=== PATIENT | female | born 1980 | race Caucasian/White ===

== ENCOUNTER 2016-08-28 22:58 | Emergency (ER) | payer SELFPAY ==
[~2016-08-28] VITALS: Ht 177.8 cm; Wt 110.8 kg
[~2016-08-28 22:58] MED LIST: AMOXICILLIN500 MG PO; BACTRIM DS1 TAB PO; CELEXA10 MG PO; CELEXA20 MG PO; CIPROFLOXACN500 MG PO; FLEXERIL PO; LORTAB 7.57.5 MG PO; OMEPRAZOLE20 MG PO; PREVACID30 M3 PO; TYLENOL # 31 TA1 PO; ULTRAM50 M1 PO; ZOFRAN ODT4 MG PO
[2016-08-29 00:04] LABS: URINE BILIRUBIN - DIPSTICK NEGATIVE (NEGATIVE); URINE BLOOD DIPSTICK NEGATIVE (NEGATIVE); URINE CLARITY CLEAR; URINE COLOR YELLOW; URINE GLUCOSE - DIPSTICK NEGATIVE (NEGATIVE); URINE KETONE TRACE mg/dL (NEGATIVE); URINE LEUK ESTERASE TRACE (NEGATIVE); URINE NITRITE - DIPSTICK NEGATIVE (Negative); URINE PROTEIN - DIPSTICK TRACE mg/dL (NEG-TRACE)
[2016-08-29 00:20] LABS: HEMATOCRIT 44.8 % (37.0-47.0); HEMOGLOBIN 15.6 g/dl (12.0-16.0); IMMATURE GRANULOCYTES 0.2 % (0.0-1.0); MEAN CELL VOLUME 85.5 fL CALC (80.0-100.0); MEAN CORPUSCULAR HGB 29.8 pG CALC (26.0-32.0); MEAN CORPUSCULAR HGB CONC 34.8 g/L CALC (32.0-36.0); NEUT# 3.24 thou/uL (2.00-7.15); RED BLOOD COUNT 5.24 mill/uL (4.20-5.60); RED CELL DISTRI WIDTH 12.9 % (11.5-15.5)
[2016-08-29 00:23] LABS: ALBUMIN 4.7 g/dL (3.2-5.0); ALKALINE PHOSPHATASE 67 u/l (38-126); AMYLASE 37 u/l (30-110); ANION GAP 15 (6-22 (CALC)); BILIRUBIN, TOTAL 0.8 mg/dL (0.0-1.4); BUN 9 mg/dL (7-17); BUN/CREATININE RATIO 10 (12-20 (CALC)); CALCIUM 9.6 mg/dL (8.4-10.2); CARBON DIOXIDE 27 mmol/l (22-30); CHLORIDE 104 mmol/l (95-108); CREATININE 0.8 mg/dL (0.5-1.0); GFR > 60 ML/MIN (>=60 (CALC)); GFR FOR AFR.AMER. > 60 ML/MIN (>=60 (CALC)); GLUCOSE 88 mg/dL (65-105); LIPASE 180 u/l (23-300); POTASSIUM 3.7 mmol/l (3.5-5.1); SGOT/AST 22 u/l (14-36); SGPT/ALT 33 u/l (9-52); SODIUM 142 mmol/l (137-146); TOTAL PROTEIN 7.3 g/dL (6.3-8.2)
[2016-08-29] MEDS ORDERED: PROTONIX40 MG PO (01:32)
[2016-08-29 02:00] VITALS: BP 106/58
== END 2016-08-29 02:00 | disposition home or self-care (01) | DRG 392 ==
LOC: ED 22:58
PROVIDERS: Emergency Medicine
DX: R10.13 Epigastric pain (principal); F32.9 Major depressive disorder, single episode, unspecified; K21.9 Gastro-esophageal reflux disease without esophagitis; F17.210 Nicotine dependence, cigarettes, uncomplicated; K44.9 Diaphragmatic hernia without obstruction or gangrene; K57.30 Diverticulosis of large intestine without perforation or abscess without bleeding

== ENCOUNTER 2016-09-22 10:08 | Emergency (ER) | payer OTHER ==
[~2016-09-22] VITALS: Ht 177.8 cm; Wt 120.0 kg
[~2016-09-22 10:08] MED LIST changes: +PROTONIX40 MG PO
[2016-09-22] MEDS ORDERED: PROTONIX40 M2 PO (10:18)
[2016-09-22 10:36] LABS: HEMATOCRIT 47.7 % (37.0-47.0); HEMOGLOBIN 16.8 g/dl (12.0-16.0); IMMATURE GRANULOCYTES 0.3 % (0.0-1.0); MEAN CELL VOLUME 84.3 fL CALC (80.0-100.0); MEAN CORPUSCULAR HGB 29.7 pG CALC (26.0-32.0); MEAN CORPUSCULAR HGB CONC 35.2 g/L CALC (32.0-36.0); NEUT# 4.43 thou/uL (2.00-7.15); RED BLOOD COUNT 5.66 mill/uL (4.20-5.60); RED CELL DISTRI WIDTH 12.7 % (11.5-15.5)
[2016-09-22 11:04] LABS: ALBUMIN 4.8 g/dL (3.2-5.0); ALKALINE PHOSPHATASE 72 u/l (38-126); ANION GAP 15 (6-22 (CALC)); BILIRUBIN, TOTAL 1.4 mg/dL (0.0-1.4); BUN 9 mg/dL (7-17); BUN/CREATININE RATIO 12 (12-20 (CALC)); CALCIUM 9.1 mg/dL (8.4-10.2); CARBON DIOXIDE 23 mmol/l (22-30); CHLORIDE 107 mmol/l (95-108); CREATININE 0.7 mg/dL (0.5-1.0); GFR > 60 ML/MIN (>=60 (CALC)); GFR FOR AFR.AMER. > 60 ML/MIN (>=60 (CALC)); GLUCOSE 101 mg/dL (65-105); SGOT/AST 44 u/l (14-36); SGPT/ALT 28 u/l (9-52); SODIUM 140 mmol/l (137-146); TOTAL PROTEIN 7.7 g/dL (6.3-8.2)
[2016-09-22 11:16] LABS: MYOGLOBIN 24 ng/mL (0 - 62)
[2016-09-22] MEDS ORDERED: MOTRIN800 MG PO (12:00)
[2016-09-22] MEDS ORDERED: TRAMADOL HYDROC50 MG PO (12:00)
[2016-09-22 12:11] VITALS: BP 121/75
== END 2016-09-22 12:18 | disposition home or self-care (01) | DRG 313 ==
LOC: ED 10:08
PROVIDERS: Emergency Medicine
DX: R07.89 Other chest pain (principal); F17.210 Nicotine dependence, cigarettes, uncomplicated

== ENCOUNTER 2016-11-16 16:07 | Emergency (ER) | payer OTHER ==
[~2016-11-16] VITALS: Ht 177.8 cm; Wt 100.0 kg
[~2016-11-16 16:07] MED LIST changes: +MOTRIN800 MG PO; +PROTONIX40 M2 PO; +TRAMADOL HYDROC50 MG PO
[2016-11-16] MEDS ORDERED: TRAMADOL HYDROC50 MG PO (17:12)
[2016-11-16 17:36] VITALS: BP 131/67
== END 2016-11-16 17:36 | disposition home or self-care (01) | DRG 563 ==
LOC: ED 16:07
DX: S82.001A Unspecified fracture of right patella, initial encounter for closed fracture (principal); F32.9 Major depressive disorder, single episode, unspecified; K21.9 Gastro-esophageal reflux disease without esophagitis; W01.0XXA Fall on same level from slipping, tripping and stumbling without subsequent striking against object, initial encounter; Y93.E9 Activity, other interior property and clothing maintenance; Y92.009 Unspecified place in unspecified non-institutional (private) residence as the place of occurrence of the external cause
CPT/HCPCS: L1830

== ENCOUNTER 2017-06-27 12:23 | Emergency (ER) | payer SELFPAY ==
[~2017-06-27] VITALS: Ht 177.8 cm; Wt 93.0 kg
[2017-06-27] MEDS ORDERED: PRE-NATAL PO (13:04)
[2017-06-27 13:38] LABS: URINE BILIRUBIN - DIPSTICK NEGATIVE (NEGATIVE); URINE BLOOD DIPSTICK NEGATIVE (NEGATIVE); URINE COLOR YELLOW; URINE GLUCOSE - DIPSTICK NEGATIVE (NEGATIVE); URINE KETONE NEGATIVE (NEGATIVE); URINE NITRITE - DIPSTICK NEGATIVE (Negative); URINE PH 5.5 (4.5-8.0); URINE PROTEIN - DIPSTICK TRACE mg/dL (NEG-TRACE); URINE SPECIFIC GRAVITY >=1.030; URINE UROBILINOGEN - DIPSTICK 0.2 E.U./dL (0.2)
[2017-06-27 13:39] LABS: URINE CLARITY CLOUDY; URINE LEUK ESTERASE MODERATE (NEGATIVE)
[2017-06-27 13:41] LABS: URINE BACTERIA MODERATE hpf; URINE CASTS FEW lpf (NONE-RARE); URINE EPITHELIAL CELLS MANY EPI/hpf (0-FEW)
[2017-06-27] MEDS ORDERED: BACTRIM DS1 TAB PO (14:33)
[2017-06-27 14:41] VITALS: BP 105/84
== END 2017-06-27 14:41 | disposition home or self-care (01) | DRG 781 ==
LOC: ED 12:23
PROVIDERS: Emergency Medicine
DX: O23.42 Unspecified infection of urinary tract in pregnancy, second trimester (principal); F17.210 Nicotine dependence, cigarettes, uncomplicated; O99.332 Smoking (tobacco) complicating pregnancy, second trimester; Z3A.18 18 weeks gestation of pregnancy

== ENCOUNTER 2018-03-26 12:31 | Emergency (ER) | payer SELFPAY ==
[~2018-03-26] VITALS: Ht 177.8 cm; Wt 98.0 kg
[~2018-03-26 12:31] MED LIST changes: +PRE-NATAL PO
[2018-03-26] MEDS ORDERED: ZOFRAN4 MG/TAB PO (14:15)
[2018-03-26 14:36] VITALS: BP 117/70
== END 2018-03-26 14:36 | disposition home or self-care (01) | DRG 103 ==
LOC: ED 12:31
DX: R51 Headache (principal); F17.210 Nicotine dependence, cigarettes, uncomplicated
CPT/HCPCS: J0131

== ENCOUNTER 2018-10-17 09:33 | Emergency (ER) | payer SELFPAY ==
[~2018-10-17] VITALS: Ht 177.8 cm; Wt 103.0 kg
[~2018-10-17 09:33] MED LIST changes: +ZOFRAN4 MG/TAB PO
[2018-10-17 10:27] LABS: HEMATOCRIT 42.2 % (37.0-47.0); IMMATURE GRANULOCYTES 0.3 % (0.0-5.0); MEAN CELL VOLUME 85.9 fL CALC (80.0-100.0); MEAN CORPUSCULAR HGB 29.3 pG CALC (26.0-32.0); MEAN CORPUSCULAR HGB CONC 34.1 g/L CALC (32.0-36.0); NEUT# 7.02 thou/uL (2.00-7.15); RED BLOOD COUNT 4.91 mill/uL (4.20-5.60); RED CELL DISTRI WIDTH 12.1 % (11.5-15.5)
[2018-10-17 10:33] LABS: HEMOGLOBIN 14.4 g/dl (12.0-16.0)
[2018-10-17 10:34] LABS: URINE BILIRUBIN - DIPSTICK NEGATIVE (NEGATIVE); URINE BLOOD DIPSTICK NEGATIVE (NEGATIVE); URINE COLOR YELLOW; URINE GLUCOSE - DIPSTICK NEGATIVE (NEGATIVE); URINE KETONE NEGATIVE (NEGATIVE); URINE LEUK ESTERASE TRACE (NEGATIVE); URINE NITRITE - DIPSTICK NEGATIVE (Negative); URINE PROTEIN - DIPSTICK NEGATIVE (NEG-TRACE); URINE SPECIFIC GRAVITY 1.025; URINE UROBILINOGEN - DIPSTICK 0.2 E.U./dL (0.2)
[2018-10-17 10:48] LABS: ALBUMIN 3.8 g/dL (3.2-5.0); ALKALINE PHOSPHATASE 71 u/l (38-126); ANION GAP 10 (6-22 (CALC)); BILIRUBIN, TOTAL 0.6 mg/dL (0.0-1.4); BUN 13 mg/dL (7-17); BUN/CREATININE RATIO 15 (12-20 (CALC)); CARBON DIOXIDE 29 mmol/l (22-30); CHLORIDE 104 mmol/l (95-108); CREATININE 0.9 mg/dL (0.5-1.0); GFR > 60 ML/MIN (>=60 (CALC)); GFR FOR AFR.AMER. > 60 ML/MIN (>=60 (CALC)); LIPASE 88 u/l (23-300); POTASSIUM 4.1 mmol/l (3.5-5.1); SGOT/AST 23 u/l (14-36); SODIUM 139 mmol/l (137-146); TOTAL PROTEIN 6.3 g/dL (6.3-8.2)
[2018-10-17] MEDS ORDERED: ONDANSETRON4 MG PO (11:49)
[2018-10-17 11:55] VITALS: BP 120/80
== END 2018-10-17 12:02 | disposition home or self-care (01) | DRG 392 ==
LOC: ED 09:33
PROVIDERS: Family Medicine
DX: R10.31 Right lower quadrant pain (principal); R11.2 Nausea with vomiting, unspecified; F17.210 Nicotine dependence, cigarettes, uncomplicated
CPT/HCPCS: Q9967

== ENCOUNTER 2018-12-29 12:20 | Emergency (ER) | payer SELFPAY ==
[~2018-12-29] VITALS: Ht 177.8 cm; Wt 100.0 kg
[~2018-12-29 12:20] MED LIST changes: +ONDANSETRON4 MG PO
[2018-12-29] MEDS ORDERED: FLEXERIL5 MG PO (13:01)
[2018-12-29] MEDS ORDERED: NAPROXEN375 MG PO (13:01)
[2018-12-29] MEDS ORDERED: MEDDOSEPAK PO (13:01)
[2018-12-29 13:15] VITALS: BP 129/79
== END 2018-12-29 13:15 | disposition home or self-care (01) | DRG 563 ==
LOC: ED 12:20
DX: S56.912A Strain of unspecified muscles, fascia and tendons at forearm level, left arm, initial encounter (principal); M77.9 Enthesopathy, unspecified; F17.200 Nicotine dependence, unspecified, uncomplicated; X58.XXXA Exposure to other specified factors, initial encounter

== ENCOUNTER 2019-02-25 15:46 | Emergency (ER) | payer SELFPAY ==
[~2019-02-25] VITALS: Ht 177.8 cm; Wt 98.0 kg
[~2019-02-25 15:46] MED LIST changes: +FLEXERIL5 MG PO; +MEDDOSEPAK PO; +NAPROXEN375 MG PO
[2019-02-25] MEDS ORDERED: ORPHENADRINE100 MG PO (20:11)
[2019-02-25] MEDS ORDERED: MOTRIN400 MG/TAB PO (20:11)
[2019-02-25 20:19] VITALS: BP 121/75
== END 2019-02-25 20:32 | disposition home or self-care (01) | DRG 556 ==
LOC: ED 15:46
DX: M25.511 Pain in right shoulder (principal); F17.210 Nicotine dependence, cigarettes, uncomplicated

== ENCOUNTER 2020-03-02 07:05 | Emergency (ER) | payer SELFPAY ==
[~2020-03-02] VITALS: Ht 177.8 cm; Wt 98.0 kg
[~2020-03-02 07:05] MED LIST changes: +MOTRIN400 MG/TAB PO; +ORPHENADRINE100 MG PO
[2020-03-02] MEDS ORDERED: NAPROXEN500 MG PO (09:55)
[2020-03-02 10:04] VITALS: BP 136/77
== END 2020-03-02 10:04 | disposition home or self-care (01) | DRG 563 ==
LOC: ED 07:05
DX: S93.601A Unspecified sprain of right foot, initial encounter (principal); F17.200 Nicotine dependence, unspecified, uncomplicated; X50.0XXA Overexertion from strenuous movement or load, initial encounter

== ENCOUNTER 2020-10-30 18:53 | Emergency (ER) | payer SELFPAY ==
[~2020-10-30 18:53] MED LIST changes: +NAPROXEN500 MG PO
[2020-10-30 19:57] LABS: HEMATOCRIT 43.1 % (37.0-47.0); HEMOGLOBIN 14.1 g/dl (12.0-16.0); IMMATURE GRANULOCYTES 0.1 % (0.0-5.0); MEAN CELL VOLUME 88.5 fL CALC (80.0-100.0); MEAN CORPUSCULAR HGB CONC 32.7 g/dL CAL (32.0-36.0); NEUT# 5.23 thou/uL (2.00-7.15); RED BLOOD COUNT 4.87 mill/uL (4.20-5.60); RED CELL DISTRI WIDTH 12.8 % (11.5-15.5)
[2020-10-30 20:16] LABS: ALKALINE PHOSPHATASE 72 u/l (38-126); ANION GAP 12 (6-22 (CALC)); BUN 8 mg/dL (7-17); BUN/CREATININE RATIO 13 (12-20 (CALC)); CARBON DIOXIDE 27 mmol/l (22-30); CHLORIDE 102 mmol/l (95-108); CREATININE 0.7 mg/dL (0.5-1.0); GFR > 60 ML/MIN (>=60 (CALC)); GFR FOR AFR.AMER. > 60 ML/MIN (>=60 (CALC)); POTASSIUM 3.9 mmol/l (3.5-5.1); SGOT/AST 21 u/l (14-36); SODIUM 136 mmol/l (137-146); TOTAL PROTEIN 6.5 g/dL (6.3-8.2)
[2020-10-30 20:24] LABS: BILIRUBIN, TOTAL 0.3 mg/dL (0.0-1.4)
[2020-10-30] MEDS ORDERED: PERCOCET 5/325M1 TAB PO (22:18)
[2020-10-30] MEDS ORDERED: IBUPROFEN600 MG PO (22:18)
[2020-10-30 22:32] VITALS: BP 138/70
== END 2020-10-30 22:32 | disposition home or self-care (01) | DRG 556 ==
LOC: ED 18:53
PROVIDERS: Emergency Medicine
DX: M79.674 Pain in right toe(s) (principal); F17.210 Nicotine dependence, cigarettes, uncomplicated

== ENCOUNTER 2020-12-15 15:01 | Emergency (ER) | payer OTHER ==
[~2020-12-15] VITALS: Ht 177.8 cm; Wt 100.0 kg
[~2020-12-15 15:01] MED LIST changes: +IBUPROFEN600 MG PO; +PERCOCET 5/325M1 TAB PO
[2020-12-15 15:56] LABS: HEMATOCRIT 45.9 % (37.0-47.0); HEMOGLOBIN 15.1 g/dl (12.0-16.0); MEAN CELL VOLUME 86.9 fL CALC (80.0-100.0); MEAN CORPUSCULAR HGB 28.6 pG CALC (26.0-32.0); MEAN CORPUSCULAR HGB CONC 32.9 g/dL CAL (32.0-36.0); NEUT# 4.27 thou/uL (2.00-7.15); RED BLOOD COUNT 5.28 mill/uL (4.20-5.60); RED CELL DISTRI WIDTH 12.9 % (11.5-15.5)
[2020-12-15 16:21] LABS: ANION GAP 8 (6-22 (CALC)); BUN 8 mg/dL (7-17); BUN/CREATININE RATIO 11 (12-20 (CALC)); CARBON DIOXIDE 27 mmol/l (22-30); CHLORIDE 105 mmol/l (95-108); CREATININE 0.8 mg/dL (0.5-1.0); GFR > 60 ML/MIN (>=60 (CALC)); GFR FOR AFR.AMER. > 60 ML/MIN (>=60 (CALC)); POTASSIUM 3.7 mmol/l (3.5-5.1); SODIUM 136 mmol/l (137-146)
[2020-12-15 17:50] VITALS: BP 115/66
== END 2020-12-15 18:15 | DRG 313 ==
LOC: ED 15:01
PROVIDERS: Family Medicine
DX: R07.9 Chest pain, unspecified (principal); F41.9 Anxiety disorder, unspecified; F31.9 Bipolar disorder, unspecified; F17.200 Nicotine dependence, unspecified, uncomplicated; Z20.822 Contact with and (suspected) exposure to COVID-19

== ENCOUNTER 2022-08-02 20:20 | Emergency (ER) | payer MEDICAID ==
[~2022-08-02] VITALS: Ht 177.8 cm; Wt 83.5 kg
[2022-08-02 20:29] VITALS: BP 149/98
[2022-08-02 20:30] VITALS: BP 137/99
[2022-08-02 20:46] VITALS: BP 127/63
[2022-08-02 21:01] VITALS: BP 115/68
[2022-08-02 21:15] VITALS: BP 112/71
[2022-08-02 21:31] VITALS: BP 131/77
== END 2022-08-02 21:56 | disposition home or self-care (01) ==
LOC: ED 20:20
DX: T52.8X1A Toxic effect of other organic solvents, accidental (unintentional), initial encounter (principal); H10.211 Acute toxic conjunctivitis, right eye; S05.01XA Injury of conjunctiva and corneal abrasion without foreign body, right eye, initial encounter; F41.9 Anxiety disorder, unspecified; F32.A Depression, unspecified; F17.210 Nicotine dependence, cigarettes, uncomplicated; X58.XXXA Exposure to other specified factors, initial encounter; Y92.009 Unspecified place in unspecified non-institutional (private) residence as the place of occurrence of the external cause

== ENCOUNTER 2023-04-19 13:03 | Emergency (ER) | payer MEDICAID ==
[2023-04-19] VITALS (7 sets, daily range): BP systolic 129–145; BP diastolic 68–95
[~2023-04-19] VITALS: Ht 177.8 cm; Wt 108.8 kg
[2023-04-19] MEDS ORDERED: KEFLEX500 MG PO (14:32)
== END 2023-04-19 15:00 | disposition home or self-care (01) ==
LOC: ED 13:03
DX: S61.243A Puncture wound with foreign body of left middle finger without damage to nail, initial encounter (principal); F41.9 Anxiety disorder, unspecified; F32.A Depression, unspecified; F17.200 Nicotine dependence, unspecified, uncomplicated; W26.8XXA Contact with other sharp object(s), not elsewhere classified, initial encounter; W45.8XXA Other foreign body or object entering through skin, initial encounter; Y93.89 Activity, other specified